=== PATIENT | female | born 1945 | race Asian ===

== ENCOUNTER 2017-02-13 09:15 | Emergency (ER) | payer MEDICARE, MEDICAID ==
[~2017-02-13] VITALS: Ht 162.6 cm; Wt 57.0 kg
[2017-02-13] MEDS ORDERED: MOME17N NASAL (09:24)
[2017-02-13] MEDS ORDERED: SIMV-261 PO (09:24)
[2017-02-13] MEDS ORDERED: ALBU8HFA IH (09:24)
[2017-02-13] MEDS ORDERED: SYMB8060 IH (09:24)
[2017-02-13] MEDS ORDERED: MONT10TA21 PO (09:24)
[2017-02-13] MEDS ORDERED: ALBU8.5H8 IH (09:24)
[2017-02-13] MEDS ORDERED: DILT90SR PO (09:24)
[2017-02-13] MEDS ORDERED: LOSA1TAB42 PO (09:24)
[2017-02-13] MEDS ORDERED: MULT1CAP32 PO (09:48)
[2017-02-13] MEDS ORDERED: CHOL100034 PO (09:48)
[2017-02-13 10:00] LABS: GLUCOSE, URINE (UA) 500 mg/dL (NEGATIVE); KETONES,URINE NEGATIVE (NEGATIVE); LEUKOCYTE ESTERASE ,URINE SMALL (NEGATIVE); OCCULT BLOOD,URINE MODERATE (NEGATIVE); PROTEIN,URINE NEGATIVE (NEGATIVE)
[2017-02-13 10:03] LABS: ADD UA MICROSCOPIC YES; APPEARANCE,URINE HAZY (CLEAR)
[2017-02-13 10:07] LABS: RBC,URINE 0-2 /HPF (0-2); SQUAMOUS EPITHELIAL CELL,UR Rare /LPF (None Seen)
[2017-02-13] MEDS ORDERED: ACETAMINOPHEN 325 MG TABLET PO ONE (11:15)
[2017-02-13 11:17] LABS: GLUCOSE,POINT OF CARE 125 MG/DL (70-110)
[2017-02-13 11:41] VITALS: BP 151/79
== END 2017-02-13 12:07 | disposition home or self-care (01) ==
LOC: EMS 09:18
DX: N39.0 Urinary tract infection, site not specified (principal); J45.909 Unspecified asthma, uncomplicated; K21.9 Gastro-esophageal reflux disease without esophagitis; E78.00 Pure hypercholesterolemia, unspecified; I10 Essential (primary) hypertension; E05.90 Thyrotoxicosis, unspecified without thyrotoxic crisis or storm; Z88.2 Allergy status to sulfonamides; Z88.6 Allergy status to analgesic agent
CPT/HCPCS: 82962; 87086; 99284

== ENCOUNTER 2019-01-28 15:40 | Emergency (ER) | payer MEDICARE, OTHER ==
[~2019-01-28] VITALS: Ht 152.4 cm; Wt 58.2 kg
[~2019-01-28 15:40] MED LIST: ALBU8.5H8 IH; CHOL100034 PO; DILT90SR PO; LOSA1TAB42 PO; MOME17N NASAL; MONT10TA21 PO; MULT1CAP32 PO; SIMV-261 PO; SYMB8060 IH
[2019-01-28 17:02] VITALS: BP 158/74
[2019-01-28] MEDS ORDERED: OxyCODONE HCL/ACETAMINOPHEN 5-325 MG TABLET PO ONE (17:15)
[2019-01-28] MEDS ORDERED: SIMV-259 PO (17:20)
[2019-01-28] MEDS ORDERED: BUDE10.2 IH (17:21)
[2019-01-28] MEDS ORDERED: CHOL100018 PO (17:21)
[2019-01-28] MEDS ORDERED: DILT180C63 PO (17:21)
== END 2019-01-28 17:35 | disposition home or self-care (01) ==
LOC: EMS 15:41
DX: M25.462 Effusion, left knee (principal); E78.00 Pure hypercholesterolemia, unspecified; E03.9 Hypothyroidism, unspecified; I10 Essential (primary) hypertension; J45.909 Unspecified asthma, uncomplicated; K21.9 Gastro-esophageal reflux disease without esophagitis; Z79.899 Other long term (current) drug therapy; Z88.2 Allergy status to sulfonamides; Z88.6 Allergy status to analgesic agent
CPT/HCPCS: 93971

== ENCOUNTER → 2020-06-18 | Outpatient (CLI) | payer MEDICARE ==
[~2020-06-18] MED LIST changes: +BUDE10.2 IH; -CHOL100034 PO; +CHOL100044 PO; +DILT-95 PO; -DILT90SR PO; +MONT-35 PO; -MONT10TA21 PO; +SIMV-259 PO; -SIMV-261 PO; -SYMB8060 IH
[2020-06-18 12:22] LABS: BASOPHILS % (AUTO) 1.3 % (0.0-2.0); EOSINOPHILS % (AUTO) 4.5 % (1.0-6.0); HEMATOCRIT 37.5 % (36-46); HEMOGLOBIN 12.5 g/dL (12.0-16.0); LYMPHOCYTES # (AUTO) 0.8 K/uL (1.0-4.8); LYMPHOCYTES % (AUTO) 25.3 % (22.0-44.0); MEAN CORPUSCULAR HEMOGLOBIN 32.6 pg (26.0-34.0); MEAN CORPUSCULAR HGB CONC 33.3 G/dL (31.0-37.0); MEAN CORPUSCULAR VOLUME 98 fL (80-100); MONOCYTES # (AUTO) 0.3 K/uL (0.1-1.0); MONOCYTES % (AUTO) 8.5 % (2.0-9.0); NEUTROPHILS % (AUTO) 60.4 % (40.0-70.0); PLATELET COUNT (AUTO) 182 K/uL (150-450); RED BLOOD CELL COUNT(AUTO) 3.84 MIL/uL (4.00-5.20)
[2020-06-18 12:31] LABS: ALANINE AMINOTRANSFERASE 26 U/L (12-78); ALBUMIN 3.7 g/dL (3.4-5.0); ALKALINE PHOSPHATASE 88 U/L (46-116); ANION GAP 10 mmol/L (8-16); ASPARTATE AMINOTRANSFERASE 28 U/L (15-37); BILIRUBIN,TOTAL 0.8 mg/dL (0.1-1.0); CALCIUM, TOTAL 9.3 mg/dL (8.8-10.5); CARBON DIOXIDE 29 mmol/L (22-29); CHLORIDE 101 mmol/L (98-107); CREATININE 0.79 mg/dL (0.60-1.30); GLUCOSE,RANDOM 185 mg/dL (70-110); POTASSIUM 3.8 mmol/L (3.5-5.1); SODIUM SERUM 140 mmol/L (136-145); TOTAL PROTEIN, SERUM 8.1 g/dL (6.4-8.2); UREA NITROGEN, BLOOD 17 mg/dL (7-18)
[2020-06-18 12:36] LABS: GLOMERULAR FILTR. RATE CALC > 60 mL/min (>60)
[2020-06-18 12:45] LABS: PROTHROMBIN TIME 10.6 SEC (9.4-11.6)
== END | disposition home or self-care (01) ==
LOC: LABPV 09:47
PROVIDERS: ATTEND Internal Medicine Pulmonary Disease
DX: R59.0 Localized enlarged lymph nodes (principal); R91.1 Solitary pulmonary nodule
CPT/HCPCS: 80053; 85025; 85610; 85730